=== PATIENT | female | born 1990 | race Caucasian/White ===

== ENCOUNTER 2016-10-02 19:40 | Emergency (ER) | payer OTHER ==
[~2016-10-02] VITALS: Ht 167.6 cm; Wt 102.1 kg
[2016-10-02 19:40] VITALS: BP 130/70
[~2016-10-02 19:40] MED LIST: ACET50TA PO; IBUP200T2 PO; IBUP80TA PO
[2016-10-02] MEDS ORDERED: TRAM50TA2 PO (20:21)
[2016-10-02] MEDS ORDERED: BACT800T5 PO (20:21)
[2016-10-02] MEDS: traMADol 50 MG TAB PO ONE ×2 (20:29→20:30)
[2016-10-02] MEDS ORDERED: traMADol 50 MG TAB PO ONE (20:30)
[2016-10-02] MEDS ORDERED: BACTRIM 160MG/800MG DS TAB PO ONE (20:30)
[2016-10-02] MEDS ORDERED: INDOMETHACIN 25 MG CAP PO ONE (20:30)
== END 2016-10-02 20:39 | disposition home or self-care (01) ==
LOC: M ED 20:33
DX: H60.331 Swimmer's ear, right ear (principal); Z88.1 Allergy status to other antibiotic agents; Z88.5 Allergy status to narcotic agent; Z88.8 Allergy status to other drugs, medicaments and biological substances

== ENCOUNTER 2017-10-22 06:56 | Emergency (ER) | payer OTHER, MEDICAID ==
[2017-10-22] MEDS: METHOCARBAMOL 500 MG TAB PO (07:40)
[2017-10-22] MEDS: IBUPROFEN 800 MG TAB PO (07:40)
== END 2017-10-22 07:53 | disposition home or self-care (01) ==
LOC: M ED 06:56
DX: S16.1XXA Strain of muscle, fascia and tendon at neck level, initial encounter (principal); S80.01XA Contusion of right knee, initial encounter; V48.5XXA Car driver injured in noncollision transport accident in traffic accident, initial encounter; Y92.410 Unspecified street and highway as the place of occurrence of the external cause; J45.909 Unspecified asthma, uncomplicated; F17.210 Nicotine dependence, cigarettes, uncomplicated
CPT/HCPCS: 81025

== ENCOUNTER 2018-01-07 04:15 | Emergency (ER) | payer OTHER ==
[2018-01-07] MEDS: ALBUTEROL SULFATE 2.5 MG/0.5 ML INH NEB SOLN NEB (06:52)
== END 2018-01-07 07:26 | disposition home or self-care (01) ==
LOC: M ED 04:15
DX: J18.9 Pneumonia, unspecified organism (principal); J45.909 Unspecified asthma, uncomplicated; Z88.5 Allergy status to narcotic agent; Z88.1 Allergy status to other antibiotic agents
CPT/HCPCS: 71046

== ENCOUNTER → 2018-01-12 | Outpatient (CLI) | payer OTHER | LOC: M WUC 12:10 | DX: J18.9 Pneumonia, unspecified organism (principal) | CPT/HCPCS: 71046 ==

== ENCOUNTER 2018-02-22 19:03 | Emergency (ER) | payer OTHER | END 2018-02-22 20:17 | disposition left against medical advice (07) | LOC: M ED 19:03 | DX: Z53.29 Procedure and treatment not carried out because of patient's decision for other reasons (principal) ==

== ENCOUNTER → 2018-02-22 | Outpatient (REF) | payer OTHER ==
[2018-02-22 21:53] LABS: APPEARANCE, URINE HAZY (CLEAR); BACTERIA, URINE AUTO 1+ (NEGATIVE); BILIRUBIN, URINE AUTO NEGATIVE (NEGATIVE); BLOOD, URINE BLOOD NEGATIVE (NEGATIVE); COLOR, URINE YELLOW (YELLOW); GLUCOSE, URINE (UA) AUTO NEGATIVE (NEGATIVE); KETONE, URINE AUTO NEGATIVE (NEGATIVE); LEUKOCYTE ESTERASE, URINE AUTO 1+ (NEGATIVE); MUCUS, URINE SMALL (NEGATIVE); NITRITE, URINE AUTO NEGATIVE (NEGATIVE); PROTEIN, URINE AUTO NEGATIVE (NEGATIVE); RBC, URINE AUTO 3 /HPF (0-3); SPECIFIC GRAVITY URINE AUTO 1.021 (1.002-1.035); SQUAMOUS EPITHELIAL CELL UR AU 3 /HPF (0-6); UROBILINOGEN, URINE AUTO 0.2 mg/dL (0.0-2.0); WBC, URINE AUTO 4 /HPF (0-3)
== END ==
LOC: M LAB REF 02-23 15:19
DX: N39.0 Urinary tract infection, site not specified (principal)

== ENCOUNTER → 2018-03-30 | Outpatient (REF) | payer OTHER ==
[~2018-03-30] MED LIST changes: +ALBU83IN; +BACT800T5 PO; +LEVA750T7 PO; +ROBA500T PO; +TRAM50TA2 PO
[2018-03-30 17:07] LABS: HEMATOCRIT 42.7 % (36.0-47.0); HEMOGLOBIN 14.3 g/dl (12.0-15.5); MEAN CORPUSCULAR HEMOGLOBIN 29.9 pg (27.0-33.0); MEAN CORPUSCULAR HGB CONC 33.5 g/dl (32.0-36.5); MEAN CORPUSCULAR VOLUME 89.3 fl (80.0-96.0); PLATELET COUNT, AUTOMATED 310 10^3/uL (150-450); RED BLOOD COUNT 4.78 10^6/uL (4.00-5.40); WHITE BLOOD COUNT 7.3 10^3/uL (4.0-10.0)
[2018-03-30 17:38] LABS: HCG, SERUM QUANTITATIVE 28136 MIU/ML
[2018-03-30 17:42] LABS: RUBELLA IgG QUALITATIVE IMMUNE (IMMUNE)
[2018-03-30 18:11] LABS: HIV 1&2 SCREEN CENTAUR NEGATIVE (NEGATIVE)
[2018-04-01 09:50] LABS: HEPATITIS C VIRUS ABY INDEX 0.1 INDEX (<0.8)
== END ==
LOC: M LAB REF 16:10
PROVIDERS: ATTEND Obstetrics & Gynecology
DX: Z32.01 Encounter for pregnancy test, result positive (principal); O36.80X0 Pregnancy with inconclusive fetal viability, not applicable or unspecified

== ENCOUNTER → 2018-07-12 | Outpatient (CLI) | payer OTHER ==
[~2018-07-12] MED LIST changes: -ACET50TA PO; +MAPA500T17 PO
== END ==
LOC: M SMT 15:01
PROVIDERS: ATTEND Advanced Practice Midwife
DX: O28.5 Abnormal chromosomal and genetic finding on antenatal screening of mother (principal)

== ENCOUNTER → 2018-08-12 | Outpatient (CLI) | payer OTHER ==
[2018-08-12 14:18] LABS: BASO % 0.4 % (0.0-1.0); EOS # 0.1 10^3/uL (0.0-0.50); EOS % 1.4 % (0.0-3.0); HEMOGLOBIN 11.9 g/dl (12.0-15.5); LYMPH # 1.7 10^3/uL (1.5-6.5); LYMPH % 22.7 % (24.0-44.0); MEAN CORPUSCULAR HEMOGLOBIN 28.4 pg (27.0-33.0); MEAN CORPUSCULAR HGB CONC 32.2 g/dl (32.0-36.5); MEAN CORPUSCULAR VOLUME 88.3 fl (80.0-96.0); MONO # 0.4 10^3/uL (0.0-0.8); MONO % 5.4 % (0.0-5.0); NEUTROPHILS # 5.1 10^3/uL (1.8-7.7); NEUTROPHILS % 69.2 % (36.0-66.0); PLATELET COUNT, AUTOMATED 354 10^3/uL (150-450); RED BLOOD COUNT 4.19 10^6/uL (4.00-5.40); WHITE BLOOD COUNT 7.4 10^3/uL (4.0-10.0)
== END ==
LOC: M WUC 11:02
PROVIDERS: ATTEND Advanced Practice Midwife
DX: Z34.83 Encounter for supervision of other normal pregnancy, third trimester (principal); Z3A.00 Weeks of gestation of pregnancy not specified

== ENCOUNTER → 2018-08-18 | Outpatient (CLI) | payer OTHER ==
--- NOTE | 2018-08-19 05:03 | REP ---
Clinical: Anatomical evaluation. Comparison: None . Findings: Examination demonstrates a single live intrauterine in cephalic presentation. motion is identified by technologist. Placenta is noted anterior and grade grade II without evidence for placenta previa or abruption. Amniotic fluid volume is normal. Cervix measures 3.6 cm in length and appears closed. No evidence for nuchal cord. Gestational age by LMP 35 weeks 1 day with SKIP 09/21/2018 . Gestational age by current measurements 37 weeks 1 day with SKIP 09/07/2018 . FHR equals 168 beats per minute. BPD 9.6 cm 39 weeks 3 days (greater than 93rd percentile) HC 33.1 cm 37 weeks 5 days AC 34.5 cm 38 weeks 3 days (greater than 93rd percentile) FL 6.9 cm 35 weeks 1 day HL 6.0 cm 35 weeks 0 days HC/AC ratio 0.96 Estimated weight 3285 grams (greater than 97 percentile). Amniotic fluid index: 15.3 cm. Umbilical cord SD ratio: 2.40. Impression: Single live intrauterine in cephalic presentation. Greater than expected interval growth as compared to LMP noted. Electronically Signed by Souleymane Montgomery MD 08/19/2018 04:55 A
== END ==
LOC: M RAD 17:31
PROVIDERS: ATTEND Advanced Practice Midwife
DX: O26.843 Uterine size-date discrepancy, third trimester (principal); Z3A.37 37 weeks gestation of pregnancy

== ENCOUNTER → 2018-08-24 | Outpatient (REF) | payer OTHER | LOC: M LAB REF 12:46 | PROVIDERS: ATTEND Obstetrics & Gynecology | DX: O09.213 Supervision of pregnancy with history of pre-term labor, third trimester (principal); Z3A.00 Weeks of gestation of pregnancy not specified ==

== ENCOUNTER 2018-09-08 05:18 | Inpatient (IN) | payer OTHER ==
[2018-09-08] VITALS (23 sets, daily range): BP systolic 114–149; BP diastolic 56–110
[~2018-09-08] VITALS: Ht 170.2 cm; Wt 108.5 kg
[2018-09-08] MEDS ORDERED: OXYTOCIN DRIP 30 UNITS in APPROPRIATE DILUENT 1 EA IV SCH ×2 (07:45→20:04)
[2018-09-08] MEDS: LR 1,000 ML IV SCH ×2 (08:29→16:52)
[2018-09-08 08:55] LABS: HEMATOCRIT 35.3 % (36.0-47.0); HEMOGLOBIN 11.3 g/dl (12.0-15.5); MEAN CORPUSCULAR HEMOGLOBIN 27.8 pg (27.0-33.0); MEAN CORPUSCULAR VOLUME 86.7 fl (80.0-96.0); PLATELET COUNT, AUTOMATED 235 10^3/uL (150-450); RED BLOOD COUNT 4.07 10^6/uL (4.00-5.40); WHITE BLOOD COUNT 6.9 10^3/uL (4.0-10.0)
[2018-09-08] MEDS ORDERED: PENICILLIN G POTASSIUM IV 5 MU in D5W MINI-BAG PLUS 100 ML IV STA (09:35)
[2018-09-08] MEDS: PENICILLIN G POTASSIUM IV 2.5 MU in APPROPRIATE DILUENT 1 EA IV SCH ×2 (14:14→18:20)
--- NOTE | 2018-09-08 16:48 | HPE ---
DATE OF ADMISSION: 09/08/2018 REASON FOR ADMISSION: Spontaneous rupture of membranes. HISTORY OF PRESENT ILLNESS: Ms. Pino is a 28-year-old 6, para 3, who presents at 38 weeks 1 day estimated gestational age by mid trimester ultrasound with complaints of leakage of fluid. She reports a gush of fluid that occurred earlier this morning that has continued to leak. She denies any vaginal bleeding. Has had irregular contractions. Her course has been unremarkable. She initiated care as a transfer at 29 weeks. Since then has been appropriate. PAST MEDICAL HISTORY: History of anxiety/depression. PAST SURGICAL HISTORY: None. OBSTETRICAL HISTORY: She is a 6, para 3. She has had two term vaginal deliveries. Her initial delivery was a delivery at 24 weeks. She is proven to 8 pounds 11 ounces MEDICATIONS: Includes: - vitamins. ALLERGIES: She has allergies to CECLOR and CODEINE. LABORATORIES: Her blood type is B+, antibody screen is negative. Rubella is immune. Rapid plasma reagin (RPR) is nonreactive. Hepatitis surface antigen is negative. HIV is negative. Hepatitis C is nonreactive. Chlamydia and gonorrhea screens were negative. She was tested positive for Trichomonas. She had a one hour Glucola which was normal. She is group B Streptococcus (GBS) positive. PHYSICAL EXAMINATION: VITAL SIGNS: Stable. She is afebrile. She has a category one heart rate tracing, heart rate 150 with moderate variability, spontaneous excels, no decelerations, irregular contractions on tocometer. GENERAL APPEARANCE: Well appearing, no acute distress. LUNGS: Clear to auscultation bilaterally. CARDIOVASCULAR: Heart regular rate and rhythm. ABDOMEN: Gravid and nontender. Estimated weight 3600 grams. CERVICAL EXAM: She was 1 cm dilated, 50% effaced, -2 station, grossly ruptured. ASSESSMENT: 1. Ms. Pino is a 28-year-old 6, para 3, at 38 weeks 1 day with spontaneous rupture of membranes. 2. Reassuring status. PLAN: 1. Admit to Labor delivery, complete blood count (CBC) , rapid plasma reagin (RPR), type and screen. 2. Antibiotics for group B Streptococcus (GBS) prophylaxis. 3. Anticipate spontaneous vaginal delivery.
[2018-09-08] MEDS ORDERED: ACETAMINOPHEN TAB 650MG DOSE (2X325MG) As Ordered ONE (20:14)
[2018-09-08] MEDS ORDERED: ANUSOL HC CREAM 30GM TOP PRN (20:15)
[2018-09-08] MEDS ORDERED: MEASLES,MUMPS,RUBELLA VACCINE INJ (MMR-II) (90707) SC SCH (20:15)
[2018-09-08] MEDS ORDERED: DOCUSATE SODIUM 100 MG CAP PO PRN (20:15)
[2018-09-08] MEDS ORDERED: METHYLERGONOVINE MALEATE 0.2 MG TAB PO PRN (20:15)
[2018-09-08] MEDS ORDERED: ACETAMINOPHEN TAB 650MG DOSE (2X325MG) PO PRN (20:15)
[2018-09-08] MEDS ORDERED: RHOGAM 300 MCG (1500 IU) INJ (J2790) IM SCH (20:15)
[2018-09-08] MEDS ORDERED: IBUPROFEN 600 MG TAB PO PRN (20:15)
[2018-09-08] MEDS ORDERED: DIBUCAINE 1% OINTMENT 30GM TOP PRN (20:15)
[2018-09-08] MEDS ORDERED: MOM 30ML SUSPENSION UDC PO PRN (20:15)
[2018-09-08] MEDS: ACETAMINOPHEN 500 MG TAB PO PRN (20:36)
[2018-09-09] MEDS: IBUPROFEN 800 MG TAB PO PRN ×2 (01:10→15:42)
[2018-09-09] MEDS: ACETAMINOPHEN 500 MG TAB PO PRN ×3 (05:33→18:59)
[2018-09-09 06:16] VITALS: BP 124/81
--- NOTE | 2018-09-09 08:10 | NUR ---
PPD# 1 S: Doing well w/o complaints. +voids, +ambulation and pain well controlled O: vss, AF gen: well appearing abd: soft, nttp ff@U ext: neg calf tenderness A/P: PPD # 1 s/p NSD, recovering in stable condition -continue routine care -d/c plans for tomorrow Bonita Romero MD
[2018-09-09] MEDS: PRENATAL VITAMINS CHEWABLE TABLET PO SCH (08:57)
--- NOTE | 2018-09-09 09:55 | DN ---
DATE OF DELIVERY: 09/08/2018 TIME OF : 1933 hours. GENDER: Female. SCORES: 8 and 9. WEIGHT: Was 3330 grams or 7 pounds 5 ounces. LACERATIONS: None. ANESTHESIA: None. ESTIMATED BLOOD LOSS: 300 mL. COUNTS: Five laparotomy sponges accounted for prior to and after delivery. DELIVERY NOTE: On Sep 08 2018 at 1933 hours, Ms. Pino a 28-year-old 6 now para 4 had a spontaneous vaginal delivery of a live born female infant, scores 8 and 9, weight was 7 pounds 5 ounces or 3330 grams. Head was delivered OA over intact perineum followed by delivery of shoulders and corpus. Infant was handed to mom with a good cry. Cord was clamped times two and was cut by the father of the baby under my direction. Cord blood was obtained. Placenta was then drained and delivered grossly intact. A premixed bag of 500 mL of normal saline with 30 units of Pitocin was then bolused along with uterine massage until the uterus was firm. On inspection cervix, vagina and perineum was grossly intact and hemostatic. Mom and baby were recovering in stable condition.
[2018-09-09 17:56] VITALS: BP 140/69
[2018-09-10] MEDS: IBUPROFEN 800 MG TAB PO PRN ×2 (00:38→08:51)
[2018-09-10] MEDS: ACETAMINOPHEN 500 MG TAB PO PRN (05:52)
[2018-09-10 06:15] VITALS: BP 130/71
[2018-09-10] MEDS ORDERED: ACET-683 PO (06:56)
[2018-09-10] MEDS ORDERED: IBUP80TA PO (06:58)
[2018-09-10] MEDS: PRENATAL VITAMINS CHEWABLE TABLET PO SCH (08:16)
== END 2018-09-10 13:50 | disposition home or self-care (01) | DRG 560 ==
LOC: M LDO 05:18 → M LDI 07:36 → M OBS 21:31
PROVIDERS: ADMIT Obstetrics & Gynecology; ATTEND Obstetrics & Gynecology
PROC: 10E0XZZ Delivery of Products of Conception, External Approach (ICD-10-PCS; principal; 2018-09-08)
DX: O80 Encounter for full-term uncomplicated delivery (principal); Z37.0 Single live birth; Z3A.38 38 weeks gestation of pregnancy

== ENCOUNTER → 2018-09-27 | Outpatient (CLI) | payer OTHER ==
[~2018-09-27] MED LIST changes: +ACET-683 PO
--- NOTE | 2018-09-27 14:57 | REP ---
Left rib series and PA chest: Left ribs for views: There is no rib fracture or other rib abnormality. Impression: Negative left rib series. PA chest: There is no pneumothorax, hemothorax or pulmonary contusion. Lung uriostegui are clear. Cardiac size is normal. The eduardo, mediastinum, skeletal structures are unremarkable per The right upper lobe infiltrate identified on 01/07/2018 has resolved. Impression: Negative PA chest. Electronically Signed by Richardson Encinas MD 09/27/2018 02:49 P
== END ==
LOC: M WUC 12:53
PROVIDERS: ATTEND Physician Assistant
DX: S20.212A Contusion of left front wall of thorax, initial encounter (principal); Y92.89 Other specified places as the place of occurrence of the external cause; Y93.89 Activity, other specified; X58.XXXA Exposure to other specified factors, initial encounter; Y99.8 Other external cause status

== ENCOUNTER → 2024-11-13 | Outpatient (REF) ==
[~2024-11-13] MED LIST changes: +ALBU2.5V10; -ALBU83IN
== END ==
LOC: M LAB REF 23:20
DX: Z32.00 Encounter for pregnancy test, result unknown (principal)